=== PATIENT | male | born 1950 | race Caucasian/White ===

== ENCOUNTER 2020-03-27 09:23 | Outpatient (REF) | payer OTHER, SELFPAY ==
--- NOTE | 2020-03-27 09:39 | XR_ITS ---
EXAMINATION: XR FEMUR, LEFT CLINICAL INFORMATION: Disorder of bone. Follow up lytic lesion in the left femoral neck seen on pelvic MRI. COMPARISON: Pelvic MRI June 2019. TECHNIQUE: AP and lateral views of the left femur were obtained. FINDINGS: No definite bone lesion is appreciated by x-ray. There is mild arthritis at the left knee and left hip joint. No fracture or dislocation is seen. There is evidence of atherosclerotic disease. XR/XR femur LT 2V IMPRESSION: No definite bone lesion seen by x-ray. Mild arthritis at the left hip and knee joints. Follow-up MRI of the left hip to ensure stability recommended.
== END 2020-03-27 09:24 | disposition home or self-care (01) ==
LOC: HO.XRAY 09:23
PROVIDERS: PCP Family Medicine; Visit Provider Internal Medicine Medical Oncology
DX: M89.9 Disorder of bone, unspecified (principal)
CPT/HCPCS: 73552

== ENCOUNTER → 2023-12-16 13:35 | Outpatient (RCR) | payer OTHER, SELFPAY ==
[2020-03-27 08:14] VITALS: BMI 29.9
[2020-03-27 08:15] VITALS: BP 173/75; PULSE 74; RESP 18; TEMP 37.1; O2SAT 99
--- NOTE | 2020-03-27 08:18 | PM.HEMONCCN ---
Subjective - Subjective Chief complaint: consult for thrombocytopenia. 2. pancytopenia. Patient: new to practice Consult date: 03/27/20 Requesting Physician: Ana summers. Primary Care Provider: Jacquie Gutierrez MD Medical Summary: DIAGNOSIS: PANCYTOPENIA. THROMBOCYTOPENIA. HPI - Consult Narrative Reason for consult: pancytopenia Narrative: Yovani Voss is a pleasant 69 year old gentleman who has been noted to have Thrombocytopenia. Serial platelet counts are as follows: Jun 26 11:07 79 Jun 22 11:08 89 May 12 14:08 139 Most recent CBC actually revealed Pancytopenia: WBC 3.9 ANC 2.3 RBC 3.31 HGB 12.0 HCT 34.0 MCV 102.5 MCH 36.[address] He tells me he has been feeling extremely fatigued. He gets episodes of lightheadedness and dizziness, to the extent that he almost passes out. [place] on account of it. He has no fever, Chills no night sweats. His appetite is good. His weight is stable. He had some GI complaints however those resolved after he had the gallbladder out. He has a history of nodular regenerative hyperplasia of the liver diagnosed on a liver biopsy done in [place], [place]. He had a colonoscopy 08/[address] Mc. It revealed diverticulosis and polyps. BIOPSIES SHOWED: A. Cecum, polypectomy: Fragments of tubular adenoma; no high grade dysplasia or carcinoma seen. B. Colon, ascending, polypectomy: Colonic mucosa with prominent lymphoid aggregates; no dysplasia seen. C. Colon, transverse, polypectomy: Hyperplastic mucosal polyp. D. Colon, sigmoid, polypectomy: Hyperplastic mucosal polyp. Review of Systems - Constitutional Reports fatigue, Reports lack of energy, Reports malaise, Reports weakness, Denies anorexia, Denies fever(s), Denies night sweats, Denies weight gain - Eyes Denies blurry vision - ENT Reports system reviewed and no additional complaints, except as documented - Cardiovascular Denies chest pain at rest - Respiratory Denies chest congestion - Gastrointestinal Denies abdominal pain, Denies change in bowel habits - Genitourinary Genitourinary: Denies blood in urine - Musculoskeletal Denies body aches - Integumentary/Breasts Skin/Breast: Reports bleeding lesions - Neurologic Reports system reviewed and no additional complaints, except as documented, Reports weakness - Psychiatric Denies anxiety - Endocrine Denies cold intolerance Comments: feet remain cold - Hematologic/Lymphatic Reports easy bruising - Allergic/Immunologic Denies GI upset with certain foods PMFSH Medical History: Medical History (Last Updated 03/27/20 @ 10:00 by Mariela Mckeon RN) Abnormal colonoscopy BPH (benign prostatic hyperplasia) Cerebral infarction Complete left bundle branch block (LBBB) Elevated PSA Erectile dysfunction History of cirrhosis of liver Hypopituitarism Sleep apnea Testicular hypofunction Thrombocytopenia Tinnitus Tricuspid murmur Unspecified hearing loss, unspecified ear Functional capacity: independent ambulation Patient : No Surgical History: Surgical History (Last Updated 03/27/20 @ 10:00 by Mariela Mckeon RN) Tricuspid valve replaced Home Medications and Allergies Home Medications Medication Instructions Recorded Confirmed Type acetaminophen 500 mg PO Q6H PRN 03/27/20 03/27/20 History acetic acid 2 drp OTIC (EARS) Q6H 03/27/20 03/27/20 History aspirin 81 mg PO DAILY 03/27/20 03/27/20 History ibuprofen 600 mg PO Q8H PRN 03/27/20 03/27/20 History levothyroxine 50 mcg PO DAILY 03/27/20 03/27/20 History lisinopril 20 mg PO DAILY 03/27/20 03/27/20 History Allergies Allergy/AdvReac Type Severity Reaction Status Date / Time No Known Allergies Allergy Verified 03/27/20 08:27 [No Known Allergies*] Gemfibrozil Allergy Unknown Joint Pains Uncoded 08/10/19 00:00 Physical Exam Vital signs: Vital Signs Temp 98.7 F 03/27/20 08:15 Pulse 74 03/27/20 08:15 Resp 18 03/27/20 08:15 BP 173/75 H 03/27/20 08:15 Pulse Ox 99 03/27/20 08:15 Intake & Output 03/26/20 03/27/20 03/27/20 18:59 06:59 18:59 Other: Weight 94.5 kg Weight 94.5 kg - Constitutional Present: mild distress - Routine HEENT Exam Head: Present: normal inspection - Routine Neck Exam Present: supple - Routine Respiratory Exam Present: CTAB - Routine Cardiovascular Exam Cardiovascular: Present: S1, S2 - Routine Abdominal Exam Present: soft, nontender - Routine Rectal Exam Patient deferred: digital exam - Routine Extremities Exam Present: nontender - Routine Skin Exam Present: intact - Routine Neurological Exam Present: alert, oriented X3 - Detailed Neurological Exam: Coma Scale Eye Opening: Spontaneous (4) Verbal Response: Oriented (5) Motor Response: Obeys commands (6) [place] Coma Scale Total: 15 - Routine Psychiatric Exam Present: normal affect Hem/Onc Consult Result - Labs CBC & Chem 7: 03/27/20 08:55 03/27/20 08:55 Assessment and Plan (1) Pancytopenia Status: Acute This is a pleasant 69-year-old gentleman with a history of Thrombocytopenia, actually Pancytopenia. This is chronic and stable. 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 He had a CT scan of the abdomen 06/27/2019 which revealed: Abdomen and pelvis: Diverticulosis and probable mild diverticulitis of the proximal sigmoid colon. Small nonobstructing bilateral renal stones and probable complex cyst with small focus of wall calcification in the lower pole right kidney. No hydronephrosis. Slight prominence of both ureters. Well-distended bladder. Slightly enlarged prostate gland. Question mild cirrhotic changes of the liver. Splenomegaly. DIFFERENTIAL DIAGNOSIS: 2. Vitamin B12 or folate deficiency: 3. Any chronic infectious process: Hepatitis/HIV. 4. Underlying Myelo- infiltrative disorder: MDS, VS MULTIPLE MYELOMA: SIEP:WNL. PLAN: I will proceed with further evaluation. Check B12 and folate levels: 655 & 19.5. Check hepatitis profile and HIV: Negative. Check SIEP: WNL. and LDH: 223. He will return in 1 month for a F/U. Thanks, CC: Dr. Jacquie Gutierrez. Dr. Hoffman. (2) Lytic bone lesion of femur Status: Acute 69-year-old gentleman, with the finding of a lytic lesion in the left proximal femur on MRI. MRI from 07/05/19: There is a lytic lesion in the left proximal femur. Recommend radiography of this area. Recommend thorough search for any old studies of this area. PLAN: Will proceed with plain films of this area. If suspicious proceed with a bone scan. Thanks,
[2020-03-27 09:09] LABS: Baso%MD 0.3 %; Eos%MD 1.4 %; Hematocrit 49.2 % (42-52); Hemoglobin 16.6 g/dl (14.0-18.0); IG%MD 0.3 %; Lymph%MD 16.9 %; Mean Corpuscular HGB Conc 33.7 g/dl (31.0-36.0); Mean Corpuscular Hemoglobin 33.7 pg (27.0-33.0); Mean Corpuscular Volume 99.8 fL (80-98); Mean Platelet Volume 10.9 fL (9.4-12.4); Mono%MD 7.2 %; Neut%MD 73.9 %; Platelet Count 105 X10*3/uL (160-400); Red Blood Count 4.93 X10*6/uL (4.60-5.80); Red Cell Distribution Width 13.5 % (11.0-16.0); White Blood Count 9.6 X10*3/uL (4.8-10.8)
[2020-03-27 09:14] LABS: INTERNATIONAL NORM RATIO 1.1 (0.9-1.1); Prothrombin Time 13.4 SEC (10.8-13.0)
[2020-03-27 09:17] LABS: Partial Thromboplastin Time 36.8 SEC (24.1-38.0)
[2020-03-27 09:44] LABS: Alanine Aminotransferase 22 U/L (0-40); Albumin Level 4.8 g/dL (3.5-5.0); Alkaline Phosphatase 82 U/L (39-117); Anion Gap 12 (12-20); Aspartate Amino Transferase 22 U/L (5-37); Bilirubin Total 0.8 mg/dL (0.0-1.0); Blood Urea Nitrogen 14 mg/dL (9-16); Calcium 9.6 mg/dL (8.4-10.2); Carbon Dioxide 30 mmol/L (22-29); Chloride 102 mmol/L (96-108); Estimated Glomerular Filt Rate > 60; Glucose Random 102 mg/dL (60-115); Lactate Dehydrogenase 223 U/L (118-273); Potassium 4.4 mmol/l (3.3-5.1); Sodium 140 mmol/L (135-145); Total Protein 7.6 g/dL (6.5-8.0)
[2020-03-27 10:17] LABS: Folate 19.5 ng/mL (> or = 4.0); Vitamin B12 655 pg/mL (200-900)
[2020-03-27 10:24] LABS: Ferritin 240 ng/mL (20-250)
--- NOTE | 2020-03-27 12:30 | MHC.HEMONC ---
Intial consult labs obtianed, f/u in 2 months
[2020-03-27 12:54] LABS: Atypical Lymph Absolute Manual 0.3 x10*3/uL; Atypical Lymphs Percent Manual 3 % (0-6); Band Neutrophils Percent 1 % (3-5); Basophils Abs Manual 0.2 X10*3/uL (0.0-0.3); Basophils Percent Manual 2 % (0-1); Eosinophils Absolute Manual 0.1 X10*3/UL (0.0-0.8); Eosinophils Percent Manual 1 % (0-4); Large Platelet PRESENT; Lymphocytes Absolute Manual 1.7 X10*3/uL (0.6-4.8); Lymphocytes Percent Manual 18 % (20-40); Monocytes Absolute Manual 0.4 X10*3/uL (0.0-1.2); Monocytes Percent Manual 4 % (2-11); Neutrophils Absolute Manual 6.9 X10*3/uL (2.2-7.9); Neutrophils Percent Manual 71 % (45-73); Platelet Estimate DECREASED (NORMAL); Platelet Morphology Comment NORMAL; RBC Morphology NORMAL
[2020-03-28 08:18] LABS: HBc Num1 0.06 S/CO (0.00-0.79); Hepatitis B Core Antibody Nonreactive (Nonreactive); Hepatitis B Surface Antigen Negative (Negative)
[2020-03-28 08:35] LABS: HBS Num1 0.38 mIU/mL (0-7.99); HIV AB/AG Nonreactive (Nonreactive); HIV Num 1 0.25 S/CO (0.00-0.99); ~HepC Num1 0.09 S/CO (0.00-0.79); ~Hepatitis B Surface Antibody NONREACTIVE (Nonreactive); ~Hepatitis C Antibody Nonreactive (Nonreactive)
[2020-03-29 17:57] LABS: IgA 149 mg/dL (70-320); IgG 1033 mg/dL (600-1540); IgM 85 mg/dL (50-300)
== END | disposition home or self-care (01) ==
LOC: HO.ONC 03-27 08:01
PROVIDERS: PCP Family Medicine; Referring Provider Internal Medicine; Visit Provider Internal Medicine Medical Oncology
DX: D61.818 Other pancytopenia (principal)
CPT/HCPCS: 36415; 80053; 82607; 82728; 82746; 82784; 83615; 85007; 85027; 85610; 85730; 86334; 86704; 86706; 86803; 87340; 87389; 99204